=== PATIENT | female | born 1995 | race Two or more races ===

== ENCOUNTER → 2021-06-19 11:29 | Outpatient (BNVA) | payer BC, MEDICAID, SELFPAY | PROVIDERS: Visit Provider Emergency Medicine | DX: Z34.90 Encounter for supervision of normal pregnancy, unspecified, unspecified trimester (principal) | CPT/HCPCS: 81025 ==

== ENCOUNTER 2021-11-23 08:27 | Outpatient (CLI) | payer BC, MEDICAID, SELFPAY ==
--- NOTE | 2021-11-23 08:39 | US_ITS ---
WS: [id number] OB ultrasound, 11/23/2021 Clinical Data: SUPERVISION OF NORMAL Comparison: None. Findings: There is a single intrauterine in the breech presentation. The cervix measures 6.23 cm and is closed. The placenta is posterior and grade 0. There is a normal amount of amnionic fluid. The fet al heart rate is 133 beats per minute. Measurements of growth and development: BPD: 7.2 cm HC: 28.2 cm AC: 24.2 cm FL: 5.6 cm The estimated weight is 1337 or approximately 2 pounds 15 ounces. The estimated gestational age is 29w3d with an LAMONTE of approximately 02/05/2022. anatomy show a normal stomach, kidneys, bladder, cord insertion, bilateral upper and lower extr emities, three-vessel cord and its insertion, entire spine, four-chamber heart, RVOT and LVOT, latera l cerebral ventricles, cerebellum and cisterna magna. Female gender is noted. US/US OB >= 14 weeks fetus [id number] Impression: 1. Single intrauterine in breech presentation. 2. Estimated gestational age 29w3d with an LAMONTE of 02/05/2022. 3. heart rate 133 beats per minute.
== END 2021-11-23 08:28 | disposition home or self-care (01) ==
LOC: RAD 08:28
PROVIDERS: PCP Nurse Practitioner Family; Visit Provider Nurse Practitioner Family
DX: Z34.82 Encounter for supervision of other normal pregnancy, second trimester (principal); Z36.3 Encounter for antenatal screening for malformations; Z3A.29 29 weeks gestation of pregnancy
CPT/HCPCS: 76805

== ENCOUNTER → 2023-06-20 10:12 | Outpatient (BNVA) | payer BC, SELFPAY | PROVIDERS: PCP Nurse Practitioner Family; Visit Provider Psychiatry & Neurology Psychiatry | DX: Z79.899 Other long term (current) drug therapy (principal); F30.2 Manic episode, severe with psychotic symptoms | CPT/HCPCS: 80053; 80061; 83036; 84443; 85025 ==

== ENCOUNTER 2024-02-20 08:57 | Inpatient (IN) | payer BC, SELFPAY ==
[2024-02-20 09:06] VITALS: BP 130/85; PULSE 82; RESP 18; TEMP 36.8; O2SAT 99; BMI 23.5
--- NOTE | 2024-02-20 09:16 | W.ED.PSYCHS ---
Documented by User: KAT Arango 02/20/24 11:17 HPI - Psych General: Chief Complaint: Psychiatric Symptoms Stated Complaint: si Time Seen by Provider: 02/20/24 08:59 Source: patient Mode of arrival: EMS Limitations: no limitations History of Present Illness: Patient is a 28-year-old female presents to ED today via EMS for suicidal ideations. Patient states she cut her wrists this morning on a suicide attempt stating I want to . Patient upon arrival is very quiet, tearful, with a flat affect. She is not very forthcoming with information. She does states she has a longstanding history of depression. She states she does not take any medications for this because they do not work . MD complaint: suicidal ideation and feels depressed Onset (ago): year(s) Duration: constant History of same: Yes Relieving factors: none Exacerbating factors: none Associated psychiatric symptoms: depression and suicidal ideation Associated symptoms: Reports depression and suicidal ideation; Deny auditory hallucinations, visual hallucinations or homicidal ideation Treatments prior to arrival: none If self harm: admits thoughts of self harm and has acted on plan (cut wrist this morning) Review of Systems Const: Denies: fever(s) or chills Card: Denies: chest pain, palpitations, lightheadedness or syncope Resp: Denies: dyspnea GI: Denies: abdominal pain, nausea, vomiting or diarrhea Skin/Breast: Denies: rash Neuro: Denies: headache(s), numbness in extremities, weakness in extremities or sensory changes Psych: Reports: depression and suicidal ideation; Denies: paranoia, visual hallucinations, auditory hallucinations or homicidal ideation FOR[facility]LY [facility], [facility] ED PFSH: Medical History Psychiatric care Social History Smoking and tobacco/nicotine status: current some day tobacco/nicotine user Physical Exam Const: COMMON NORMALS: no acute distress, patient oriented x3, alert and well nourished GENERAL APPEARANCE: cooperative and well kempt Resp: COMMON NORMALS: normal respiratory effort and clear to auscultation bilaterally AUSCULTATION: clear to auscultation bilaterally Cardio: COMMON NORMALS: regular rate and regular rhythm RATE: regular rate RHYTHM: regular rhythm Extremity: COMMON NORMALS: normal to inspection, full ROM and capillary refill normal NARRATIVE EXTREMITY EXAM: superficial lacerations volar bilateral wrists; bleeding controlled; do not require repair at this time GENERAL: Yes normal exam except as noted Neuro: COMMON NORMALS: patient oriented x3, moves all extremities, no focal motor deficits and no sensory deficits noted SENSORIUM/ORIENTATION: Yes alert Psych: COMMON NORMALS: mental status grossly normal, Normal thought process present, cooperative, normal affect, speech normal and activity/motor behavior normal APPEARANCE: Yes well kempt ACTIVITY/MOTOR BEHAVIOR: Yes appropriate eye contact and No psychomotor agitation SPEECH: Yes normal speech THOUGHT PROCESS: Normal thought process present MEMORY/COGNITION: Yes cognition grossly intact INSIGHT: Good insight present (Psych) JUDGEMENT: Good judgement present (Psych) Skin: NARRATIVE SKIN EXAM: superficial lacerations volar wrists Course Consultations: Consultation #1: Dr. Briones-accepts to NPU Vital Signs: Vital signs: Vital Signs Temperature 98.5 F 02/20/24 11:23 Pulse Rate 64 02/20/24 11:23 Respiratory Rate 17 02/20/24 11:23 Blood Pressure 122/85 02/20/24 11:23 Pulse Oximetry 100 02/20/24 11:23 Oxygen Delivery Me thod Room Air 02/20/24 12:46 MDM - Psych Medical Decision Making Patient will be placed on a 96-hour hold for suicidal ideation/suicide attempt/self harming behavior. She will be admitted to NPU. Medical Records I reviewed the patient's medical records. Lab Data 02/20/24 10:09 02/20/24 10:09 Laboratory Results WBC 8.16 10^3/uL (3.29-11.43) 02/20/24 10:09 RBC 4.09 10^6/uL (3.85-5.65) 02/20/24 10:09 Hgb 12.20 g/dL (11.27-16.99) 02/20/24 10:09 Hct 37.8 % (36-47) 02/20/24 10:09 MCV 92.4 fl (85-98) 02/20/24 10:09 MCH 29.8 pg (27-33) 02/20/24 10:09 MCHC 32.3 g/dL (30-55) 02/20/24 10:09 RDW 13.0 % (12.1-15.1) 02/20/24 10:09 Plt Count 274 10^3/cmm (157-399) 02/20/24 10:09 MPV 10.1 fL (7.4-10.4) 02/20/24 10:09 Neut % (Auto) 79.2 % 02/20/24 10:09 Lymph % (Auto) 15.2 % 02/20/24 10:09 [place] % (Auto) 4.3 % 02/20/24 10:09 Eos % (Auto) 1.1 % 02/20/24 10:09 Baso % (Auto) 0.1 % 02/20/24 10:09 Neut # (Auto) 6.46 10^3/uL (1.8-7.7) 02/20/24 10:09 Lymph # (Auto) 1.2 10^3/uL (0.8-4.8) 02/20/24 10:09 [place] # (Auto) 0.4 10^3/uL (0.2-0.9) 02/20/24 10:09 Eos # (Auto) 0.1 10^3/uL (0.0-0.8) 02/20/24 10:09 Baso # (Auto) 0.0 10^3/uL (0.0-0.1) 02/20/24 10:09 Nucleated RBC % (auto) 0 % 02/20/24 10:09 Nucleated RBCs # 0.0 /100WBC 02/20/24 10:09 Sodium 141 mmol/L (136-145) 02/20/24 10:09 Potassium 3.6 mmol/L (3.5-5.1) 02/20/24 10:09 Chloride 106 mmol/L (98-107) 02/20/24 10:09 Carbon Dioxide 24 mmol/L (22-29) 02/20/24 10:09 Anion Gap 14.6 (5-19) 02/20/24 10:09 BUN 8 mg/dL (6-20) 02/20/24 10:09 Creatinine 0.7 mg/dL (0.5-0.9) 02/20/24 10:09 GFR Calculation 118.9 mL/min (90-130) 02/20/24 10:09 Glucose 85 mg/dL (65-115) 02/20/24 10:09 Calculated Osmolality 290 mOsm/kg (285-295) 02/20/24 10:09 Calcium 8.7 mg/dL (8.5-10.5) 02/20/24 10:09 Total Bilirubin 0.5 mg/dL (0.15-1.2) 02/20/24 10:09 AST 13 U/L (0-32) 02/20/24 10:09 ALT < 5 U/L (0-33) 02/20/24 10:09 Alkaline Phosphatase 50 U/L (35-105) 02/20/24 10:09 Total Protein 6.8 g/dL (6.6-8.7) 02/20/24 10:09 Albumin 3.9 g/dL (3.5-5.2) 02/20/24 10:09 Globulin 2.9 g/dL (1.3-4.6) 02/20/24 10:09 HCG, Qual Negative (Negative) 02/20/24 10:09 Salicylates < 0.3 mg/dL (3-10) L 02/20/24 10:09 Urine Opiates Screen Negative ng/mL (Negative) 02/20/24 09:22 Acetaminophen < 5.0 ug/mL (10-30) L 02/20/24 10:09 Ur Barbiturates Screen Negative ng/mL (Negative) 02/20/24 09:22 Ur Phencyclidine Scrn Negative ng/mL (Negative) 02/20/24 09:22 Ur Amphetamines Screen Negative ng/mL (Negative) 02/20/24 09:22 U Benzodiazepines Scrn Negative ng/mL (Negative) 02/20/24 09:22 Urine Cocaine Screen Negative ng/mL (Negative) 02/20/24 09:22 U Marijuana (THC) Screen Negative ng/mL (Negative) 02/20/24 09:22 Ethyl Alcohol < 10 mg/dL (0-10) 02/20/24 10:09 No radiology studies performed this visit Discharge Plan Discharge Patient Disposition: Admitted As Inpatient Admit Provider: Oscar Briones Clinical Impression: Suicidal ideation, Self-harming behavior, Involuntary commitment Condition: Stable Coding Level of Care Code ED Recoater for Chg Fwd Documented by User: Ranjit Lomeli DO 02/20/24 16:46 HPI - Psych General: Chief Complaint: Psychiatric Symptoms Stated Complaint: si Time Seen by Provider: 02/20/24 08:59 PFSH ED PFSH: Medical History Psychiatric care Social History Smoking and tobacco/nicotine status: current some day tobacco/nicotine user Course Vital Signs: Vital signs: Vital Signs Temperature 98.5 F 02/20/24 11:23 Pulse Rate 64 02/20/24 11:23 Respiratory Rate 17 02/20/24 11:23 Blood Pressure 122/85 02/20/24 11:23 Pulse Oximetry 100 02/20/24 11:23 Oxygen Delivery Me thod Room Air 02/20/24 12:46 MDM - Psych Medical Decision Making Patient will be placed on a 96-hour hold for suicidal ideation/suicide attempt/self harming behavior. She will be admitted to NPU. Chart reviewed and patient discussed with midlevel. Agree with assessment and plan. Lab Data 02/20/24 10:09 02/20/24 10:09 Laboratory Results WBC 8.16 10^3/uL (3.29-11.43) 02/20/24 10:09 RBC 4.09 10^6/uL (3.85-5.65) 02/20/24 10:09 Hgb 12.20 g/dL (11.27-16.99) 02/20/24 10:09 Hct 37.8 % (36-47) 02/20/24 10:09 MCV 92.4 fl (85-98) 02/20/24 10:09 MCH 29.8 pg (27-33) 02/20/24 10:09 MCHC 32.3 g/dL (30-55) 02/20/24 10:09 RDW 13.0 % (12.1-15.1) 02/20/24 10:09 Plt Count 274 10^3/cmm (157-399) 02/20/24 10:09 MPV 10.1 fL (7.4-10.4) 02/20/24 10:09 Neut % (Auto) 79.2 % 02/20/24 10:09 Lymph % (Auto) 15.2 % 02/20/24 10:09 [place] % (Auto) 4.3 % 02/20/24 10:09 Eos % (Auto) 1.1 % 02/20/24 10:09 Baso % (Auto) 0.1 % 02/20/24 10:09 Neut # (Auto) 6.46 10^3/uL (1.8-7.7) 02/20/24 10:09 Lymph # (Auto) 1.2 10^3/uL (0.8-4.8) 02/20/24 10:09 [place] # (Auto) 0.4 10^3/uL (0.2-0.9) 02/20/24 10:09 Eos # (Auto) 0.1 10^3/uL (0.0-0.8) 02/20/24 10:09 Baso # (Auto) 0.0 10^3/uL (0.0-0.1) 02/20/24 10:09 Nucleated RBC % (auto) 0 % 02/20/24 10:09 Nucleated RBCs # 0.0 /100WBC 02/20/24 10:09 Sodium 141 mmol/L (136-145) 02/20/24 10:09 Potassium 3.6 mmol/L (3.5-5.1) 02/20/24 10:09 Chloride 106 mmol/L (98-107) 02/20/24 10:09 Carbon Dioxide 24 mmol/L (22-29) 02/20/24 10:09 Anion Gap 14.6 (5-19) 02/20/24 10:09 BUN 8 mg/dL (6-20) 02/20/24 10:09 Creatinine 0.7 mg/dL (0.5-0.9) 02/20/24 10:09 GFR Calculation 118.9 mL/min (90-130) 02/20/24 10:09 Glucose 85 mg/dL (65-115) 02/20/24 10:09 Calculated Osmolality 290 mOsm/kg (285-295) 02/20/24 10:09 Calcium 8.7 mg/dL (8.5-10.5) 02/20/24 10:09 Total Bilirubin 0.5 mg/dL (0.15-1.2) 02/20/24 10:09 AST 13 U/L (0-32) 02/20/24 10:09 ALT < 5 U/L (0-33) 02/20/24 10:09 Alkaline Phosphatase 50 U/L (35-105) 02/20/24 10:09 Total Protein 6.8 g/dL (6.6-8.7) 02/20/24 10:09 Albumin 3.9 g/dL (3.5-5.2) 02/20/24 10:09 Globulin 2.9 g/dL (1.3-4.6) 02/20/24 10:09 HCG, Qual Negative (Negative) 02/20/24 10:09 Salicylates < 0.3 mg/dL (3-10) L 02/20/24 10:09 Urine Opiates Screen Negative ng/mL (Negative) 02/20/24 09:22 Acetaminophen < 5.0 ug/mL (10-30) L 02/20/24 10:09 Ur Barbiturates Screen Negative ng/mL (Negative) 02/20/24 09:22 Ur Phencyclidine Scrn Negative ng/mL (Negative) 02/20/24 09:22 Ur Amphetamines Screen Negative ng/mL (Negative) 02/20/24 09:22 U Benzodiazepines Scrn Negative ng/mL (Negative) 02/20/24 09:22 Urine Cocaine Screen Negative ng/mL (Negative) 02/20/24 09:22 U Marijuana (THC) Screen Negative ng/mL (Negative) 02/20/24 09:22 Ethyl Alcohol < 10 mg/dL (0-10) 02/20/24 10:09 Discharge Plan Discharge Patient Disposition: Admitted As Inpatient Admit Provider: Oscar Briones Clinical Impression: Suicidal ideation, Self-harming behavior, Involuntary commitment Condition: Stable Coding Level of Care Code ED Recoater for Jann Ruiz
--- NOTE | 2024-02-20 10:24 | PC.NURSE ---
96 hr rights reviewed with patient @1010 with assistance of [facility] chief quality officer Jessee. Patient shook her head when asked if she understood the guidelines of the 96 hr hold. No verbalized needs or concerns at this time. Patient denied any other needs at this time. Patient copy of rights were left with patient.
[2024-02-20 10:41] LABS: Basophils % 0.1 %; Eosinophils # 0.1 10^3/uL (0.0-0.8); Eosinophils % 1.1 %; Hematocrit 37.8 % (36-47); Lymphocytes # 1.2 10^3/uL (0.8-4.8); Lymphocytes % 15.2 %; Mean Corpuscular HGB Conc 32.3 g/dL (30-55); Mean Corpuscular Hemoglobin 29.8 pg (27-33); Mean Corpuscular Volume 92.4 fl (85-98); Mean Platelet Volume 10.1 fL (7.4-10.4); Monocytes # 0.4 10^3/uL (0.2-0.9); Monocytes % 4.3 %; Neutrophils # 6.46 10^3/uL (1.8-7.7); Neutrophils % 79.2 %; Nucleated Red Blood Cells % 0 %; Platelet Count 274 10^3/cmm (157-399); Red Blood Count 4.09 10^6/uL (3.85-5.65); White Blood Count 8.16 10^3/uL (3.29-11.43)
[2024-02-20 10:44] LABS: HCG, Serum Qual Negative (Negative)
[2024-02-20 10:49] LABS: Alanine Aminotransferase < 5 U/L (0-33); Albumin Level 3.9 g/dL (3.5-5.2); Alkaline Phosphatase 50 U/L (35-105); Anion Gap 14.6 (5-19); Aspartate Amino Transferase 13 U/L (0-32); Blood Urea Nitrogen 8 mg/dL (6-20); Calcium 8.7 mg/dL (8.5-10.5); Carbon Dioxide 24 mmol/L (22-29); Chloride 106 mmol/L (98-107); Creatinine Clr Calc Pharmacy 119.0559; Globulin 2.9 g/dL (1.3-4.6); Glomerular Filtration Rate 118.9 mL/min (90-130); Glucose 85 mg/dL (65-115); Osmolality Calculated 290 mOsm/kg (285-295); Potassium 3.6 mmol/L (3.5-5.1); Sodium 141 mmol/L (136-145); Total Bilirubin 0.5 mg/dL (0.15-1.2); Total Protein 6.8 g/dL (6.6-8.7)
[2024-02-20 10:53] LABS: Acetaminophen < 5.0 ug/mL (10-30); Alcohol Level < 10 mg/dL (0-10); Salicylate < 0.3 mg/dL (3-10)
[2024-02-20 11:23] VITALS: BP 122/85; PULSE 64; RESP 17; TEMP 36.9; O2SAT 100
[2024-02-20 11:25] LABS: Amphetamines Screen Urine Negative (Negative); Barbiturates Screen Urine Negative (Negative); Benzodiazepines Screen Urine Negative (Negative); Cocaine Screen Urine Negative (Negative); Opiate Screen Urine Negative (Negative); PCP Screen Urine Negative (Negative); THC Screen Urine Negative (Negative)
[2024-02-20] MEDS: acetaminophen 325 mg Tablet 650 MG PO ×2 (11:58→17:42)
--- NOTE | 2024-02-20 13:11 | PC.ADMIT ---
[email or web address] [facility] Admission Note: The patient,Leilani Muñoz,28 y/o, was given written information regarding hospital policies, unit procedures and contact persons. Patient's smoking status: current some day smoker. Vital Signs - 8 hr 02/20/24 09:06 02/20/24 11:23 02/20/24 12:46 Temperature 98.2 F 98.5 F Pulse Rate 82 64 Respiratory Rate 18 17 Blood Pressure 130/85 122/85 Pulse Oximetry 99 100 Oxygen Delivery Method Room Air Room Air ADMITTED FROM [facility] ER AT 1104 VIA WHEELCHAIR, SECURITY AND ER STAFF. PT IS OBSERVED TO HAVE A VERY FLAT AFFECT UPON ADMISSION. ARRIVES ON A 96 HOUR HOLD THAT ENDS ON 02/24/24 AT 0900 AM. PT STATES SHE IS HERE DUE TO I KEEP HAVING WORSENING SUICIDAL THOUGHTS THAT HAVE GOTTEN WORSE SINCE THE FIRST OF THE YEAR. PT REPORTS A LONG PSYCHIATRIC HISTORY THAT STARTED WHEN SHE WAS 4 YEARS OLD. PT ALSO REPORTS SHE WAS DIAGNOSISED WITH LEAD PSYCHOSIS WHEN I WAS [age] FROM EATING PAINT CHIPS. PT STATES SHE HAS TAKEN EVERY PSYCH MED AVAILABLE AND NONE HAVE WORKED ON ME. SKIN ASSESSMENT COMPLETED WITH HEALTH SCIENCES MANAGER IN ROOM. SKIN ASSESSMENT REVEALS: SELF INFLICTED CUTS TO BILATERAL WRISTS, LEFT IS WORSE THAN THE RIGHT, RN CLEANED AND APPLIED TELPHA TO EACH WRIST TO KEEP ARM BAND FROM IRRITATING THE CUTS. 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 UDS IS NEGATIVE FOR SUBSTANCES AND PT DENIES USING ALCOHOL OR DRUGS. PT WAS ORIENTATED TO UNIT. ALL QUESTIONS ANSWERED AND SUPPORT VOICED. PT REPORTS SHE ONLY TAKES SUPPLEMENTS AND NO OTHER MEDICATIONS.
[2024-02-20 14:00] VITALS: BP 124/84; PULSE 88; RESP 16; TEMP 36.6; O2SAT 100
--- NOTE | 2024-02-20 17:58 | PC.NURSE ---
CONTINUES TO COMPLAIN OF HEADACHE. TYLENOL 650 MG GIVEN TIMES TWO THIS SHIFT WITH MINIMAL RESULTS. PT WAS ABLE TO LAY DOWN AND REST BRIEFLY. CONTINUES TO DISPLAY FLAT AFFECT AND DEPRESSED MOOD. SUPPORT VOICED.
[2024-02-20] MEDS: ibuprofen 600 mg Tablet PO (20:10)
[2024-02-20] MEDS: lamoTRIgine 25 mg Tablet 50 MG PO (20:11)
[2024-02-20 21:10] VITALS: BP 127/80; PULSE 74; RESP 17; O2SAT 100
[2024-02-21 06:00] VITALS: BP 123/81; PULSE 73; RESP 16; O2SAT 100
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
[2024-02-21] MEDS: lamoTRIgine 25 mg Tablet 50 MG PO (09:16)
[2024-02-21 14:00] VITALS: BP 130/82; PULSE 79; RESP 16; TEMP 36.8; O2SAT 98
[2024-02-21] MEDS: quetiapine 100 mg Tablet PO (21:46)
[2024-02-21 22:00] VITALS: BP 121/86; PULSE 74; RESP 16; TEMP 36.7; O2SAT 99
[2024-02-22 06:00] VITALS: BP 124/72; PULSE 59; RESP 15; O2SAT 99
[2024-02-22] MEDS: lamoTRIgine 25 mg Tablet 50 MG PO (08:54)
[2024-02-22 14:00] VITALS: BP 119/83; PULSE 95; RESP 16; TEMP 36.6; O2SAT 98
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
[2024-02-22] MEDS: quetiapine 100 mg Tablet PO (21:42)
[2024-02-22 22:00] VITALS: BP 121/71; PULSE 74; RESP 16; TEMP 36.7; O2SAT 98
[2024-02-22] MEDS: neomycin-poly-bacitracin oint 28 gm 1 APPLIC TOPICAL (23:05)
[2024-02-23 06:00] VITALS: BP 123/79; PULSE 60; RESP 15; O2SAT 99
[2024-02-23] MEDS: lamoTRIgine 25 mg Tablet 50 MG PO (08:01)
--- NOTE | 2024-02-23 09:33 | PC.NURSE ---
Older brother, Ryan, called and stated that in the last decade their mother had threatened suicide in a similar way that the patient had. He said he believes this may be a learned coping mechanism in response to stress. Patient says he did not grow up as close to his mother as the patient did, but that he vividly remembers his mother making similar statements and that the patient was probably too little to remember being exposed to these things. Brother states he is supportive of patient and understands why she feels the way she does.
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
[2024-02-23 14:00] VITALS: BP 140/80; PULSE 107; RESP 20; TEMP 36.3; O2SAT 96
[2024-02-23] MEDS: bisacodyl 5 mg Tablet PO (16:02)
[2024-02-23] MEDS: quetiapine 100 mg Tablet PO (20:29)
[2024-02-23 21:33] VITALS: BP 116/87; PULSE 90; RESP 16; TEMP 36.5; O2SAT 99
[2024-02-24 06:00] VITALS: BP 116/76; PULSE 60; RESP 15; O2SAT 98
[2024-02-24] MEDS: lamoTRIgine 25 mg Tablet 50 MG PO (08:34)
[2024-02-24] MEDS: acetaminophen 325 mg Tablet 650 MG PO (08:51)
--- NOTE | 2024-02-24 09:53 | PC.NURSE ---
IN ROOM SITTING ON BED. PT IS OBSERVED TO BE IN BETTER SPIRITS THIS AM. RATES PAIN 5/10 IN BACK, HYDROCODONE 5/325MG GIVEN ORDERED FOR PAIN. RATES ANXIETY 6/10, VISTARIL 50 MG WAS GIVEN ORDERED FOR ANXIETY. RATES DEPRESSION 3/10. DENIES SI/HI AND AVH AT THIS TIME. ALL QUESTIONS ANSWERED AND SUPPORT WAS VOICED.
--- NOTE | 2024-02-24 09:55 | PC.NURSE ---
PT DENIES SI/HI AND AVH AT THIS TIME. RATES ANXIETY 4/10 AND DEPRESSION 2/10. PT CONTINUES TO BE NOTED TO HAVE A FLAT AFFECT AND WITHDRAWS TO ROOM. ALL QUESTIONS ANSWERED AND SUPPORT WAS VOICED. RATES PAIN 5/10 IN HEAD, TYLENOL 650 MG ORDERED FOR PAIN.
[2024-02-24 13:32] VITALS: BP 138/83; PULSE 75; RESP 16; TEMP 36.9; O2SAT 100
[2024-02-24 14:11] VITALS: BP 138/83; PULSE 75; RESP 16; TEMP 36.9; O2SAT 100
--- NOTE | 2024-02-24 15:11 | W.PM.NPUDCS ---
Diagnoses at Discharge Discharge Diagnosis (1) Bipolar affective, depress, unspec: Status: Acute (2) Suicidal ideation: Status: Acute (3) Involuntary commitment: Status: Acute Reason for Visit Reason for Visit: si Involuntary Hold Information 96 Hour Hold: 96 Hour Involuntary Admission: Yes 96 Hour Hold Ending Date: 02/24/24 96 Hour Hold Ending Time: 09:00 Mental Status Exam MSE Comments: This is a well-nourished well-developed mixed female in hospital scrubs with adequate grooming and eye contact. No abnormal movements except for mild psychomotor retardation. Cooperative with exam in no acute distress. Speech was normal rate and volume. Mood described as better, affect slightly subdued. Thought process organized. Thought content: Patient denied suicidal or homicidal ideation, there were no delusions reported or noted, she denied auditory or visual hallucinations. Attention and concentration appeared intact and memory was reliable but none were formally tested. She is alert and oriented x 3. Insight and judgment are improving and impulse control is limited. . Discharge Data Studies Completed and Pending: Laboratory Results WBC 8.16 10^3/uL (3.2 9-11.43) 02/20/24 10:09 RBC 4.09 10^6/uL (3.8 5-5.65) 02/20/24 10:09 Hgb 12.20 g/dL (11.27 -16.99) 02/20/24 10:09 Hct 37.8 % (36-47) 02/20/24 10:09 MCV 92.4 fl (85-98) 02/20/24 10:09 MCH 29.8 pg (27-33) 02/20/24 10:09 MCHC 32.3 g/dL (30-55) 02/20/24 10:09 RDW 13.0 % (12.1-15.1 ) 02/20/24 10:09 Plt Count 274 10^3/cmm (157 -399) 02/20/24 10:09 MPV 10.1 fL (7.4-10.4 ) 02/20/24 10:09 Neut % (Auto) 79.2 % 02/20/24 10:09 Lymph % (Auto) 15.2 % 02/20/24 10:09 [place] % (Auto) 4.3 % 02/20/24 10:09 Eos % (Auto) 1.1 % 02/20/24 10:09 Baso % (Auto) 0.1 % 02/20/24 10:09 Neut # (Auto) 6.46 10^3/uL (1.8 -7.7) 02/20/24 10:09 Lymph # (Auto) 1.2 10^3/uL (0.8- 4.8) 02/20/24 10:09 [place] # (Auto) 0.4 10^3/uL (0.2- 0.9) 02/20/24 10:09 Eos # (Auto) 0.1 10^3/uL (0.0- 0.8) 02/20/24 10:09 Baso # (Auto) 0.0 10^3/uL (0.0- 0.1) 02/20/24 10:09 Nucleated RBC % (a uto) 0 % 02/20/24 10:09 Nucleated RBCs # 0.0 /100WBC 02/20/24 10:09 Sodium 141 mmol/L (136-1 45) 02/20/24 10:09 Potassium 3.6 mmol/L (3.5-5 .1) 02/20/24 10:09 Chloride 106 mmol/L (98-10 7) 02/20/24 10:09 Carbon Dioxide 24 mmol/L (22-29) 02/20/24 10:09 Anion Gap 14.6 (5-19) 02/20/24 10:09 BUN 8 mg/dL (6-20) 02/20/24 10:09 Creatinine 0.7 mg/dL (0.5-0. 9) 02/20/24 10:09 GFR Calculation 118.9 mL/min (90- 130) 02/20/24 10:09 Glucose 85 mg/dL (65-115) 02/20/24 10:09 Calculated Osmolal ity 290 mOsm/kg (285- 295) 02/20/24 10:09 Calcium 8.7 mg/dL (8.5-10 .5) 02/20/24 10:09 Total Bilirubin 0.5 mg/dL (0.15-1 .2) 02/20/24 10:09 AST 13 U/L (0-32) 02/20/24 10:09 ALT < 5 U/L (0-33) 02/20/24 10:09 Alkaline Phosphata se 50 U/L (35-105) 02/20/24 10:09 Total Protein 6.8 g/dL (6.6-8.7 ) 02/20/24 10:09 Albumin 3.9 g/dL (3.5-5.2 ) 02/20/24 10:09 Globulin 2.9 g/dL (1.3-4.6 ) 02/20/24 10:09 HCG, Qual Negative (Negati ve) 02/20/24 10:09 Salicylates < 0.3 mg/dL (3-10 ) L 02/20/24 10:09 Urine Opiates Scre en Negative ng/mL (N egative) 02/20/24 09:22 Acetaminophen < 5.0 ug/mL (10-3 0) L 02/20/24 10:09 Ur Barbiturates Sc reen Negative ng/mL (N egative) 02/20/24 09:22 Ur Phencyclidine S crn Negative ng/mL (N egative) 02/20/24 09:22 Ur Amphetamines Sc reen Negative ng/mL (N egative) 02/20/24 09:22 U Benzodiazepines Scrn Negative ng/mL (N egative) 02/20/24 09:22 Urine Cocaine Scre en Negative ng/mL (N egative) 02/20/24 09:22 U Marijuana (THC) Screen Negative ng/mL (N egative) 02/20/24 09:22 Ethyl Alcohol < 10 mg/dL (0-10) 02/20/24 10:09 Vitals: Last Vital Signs Temp 98.4 F 02/24/24 14:11 Pulse 75 02/24/24 14:11 Resp 16 02/24/24 14:11 BP 138/83 02/24/24 14:11 Pulse Ox 100 02/24/24 14:11 O2 Del Method Room Air 02/21/24 06:00 Discharge Plan Discharge Patient Disposition: Home Condition: Stable Prescriptions: New lamotrigine 100 mg tablet 100 mg PO DAILY 30 Days Qty: 30 1RF Rx Instructions: Take one half tab for 1 week and then 1 tab daily quetiapine 100 mg Tablet 100 mg PO BEDTIME 30 Days Qty: 30 1RF Continued FeroSul 325 mg (65 mg iron) tablet 325 mg PO DAILY Tri-Estarylla 0.18/0.215/0.25 mg-35 mcg (28) tablet 1 tab PO DAILY ergocalciferol (vitamin D2) 1,250 mcg (50,000 unit) capsule 1,250 mcg PO Q7D fluticasone propionate 50 mcg/actuation spray,suspension 2 spray INTRANASAL DAILY Discharge Orders: Discharge Order (Routine); Ordered 02/24/24 Ordered By: Joce Ellis Referrals: [facility] [Other] (Amy Cevallos) [facility] [Other] - 02/27/24 1:30 pm (Initial assessment for services. Arrive early) Marlyn Alcaraz, INFORMATION SYSTEMS ADMINISTRATOR [Primary Care Provider] - Discharge Diet: Regular Discharge Activity: Resume usual activity Patient Instructions: Lamotrigine (By mouth) (Lamictal, Lamictal CD, Lamictal ODT,..., Quetiapine (By mouth) (Seroquel, Seroquel XR, Seroquel XR 14-Day..., Bipolar Disorder (DC), Help Prevent Suicide (DC), Suicide Prevention (DC), Opioid Safety Coding Level of Care Code Acute Code for g Fwd Diagnoses Bipolar affective, depress, unspec F31.30 Suicidal ideation R45.851 Involuntary commitment Z04.6
== END 2024-02-24 16:30 | disposition home or self-care (01) | DRG 885 ==
LOC: ER 09:29 → NP 10:55
PROVIDERS: Admitting Provider Psychiatry & Neurology Psychiatry; Emergency Provider Physician Assistant; PCP Nurse Practitioner Family; Visit Provider Psychiatry & Neurology Psychiatry
DX: F31.9 Bipolar disorder, unspecified (principal); R45.851 Suicidal ideations; R45.88 Nonsuicidal self-harm; S60.919A Unspecified superficial injury of unspecified wrist, initial encounter; X78.9XXA Intentional self-harm by unspecified sharp object, initial encounter
CPT/HCPCS: 36415; 80053; 80306; 80307; 84703; 85025; 97150; 97165; 99285

== ENCOUNTER → 2024-04-23 14:53 | Outpatient (BNVA) | payer BC, SELFPAY | PROVIDERS: PCP Nurse Practitioner Family; Visit Provider Nurse Practitioner | DX: R10.30 Lower abdominal pain, unspecified (principal) | CPT/HCPCS: 81000; 87086 ==

== ENCOUNTER 2024-05-07 15:42 | Outpatient (CLI) | payer BC, MEDICAID, SELFPAY ==
--- NOTE | 2024-05-07 15:45 | USR_ITS ---
PROCEDURE INFORMATION: Exam: US Pelvis, Transvaginal, Non-Obstetric Exam date and time: 05/07/2024 3:47 PM Age: 29 years old Clinical indication: Abdominal pain; Lower abdomen; Additional info: R10.30 - lower abdominal pain, unspecified TECHNIQUE: Imaging protocol: Real-time transvaginal pelvic (non-obstetric) ultrasound with image documentation. Transvaginal imaging was used for better evaluation of the endometrium, adnexa, and/or cervix. COMPARISON: US OB >= 14 weeks fetus [id number] 11/23/2021 8:48 AM FINDINGS: Uterus: Uterus measures 8.6 x 4.4 x 5.5 cm and appears unremarkable in echotexture and contour. Endometrium measures 2 mm. Right ovary/adnexa: Right ovary measures 2.5 x 1.9 x 1.7 cm with a volume of 4.3 mL. A small follicular cyst of 1.1 x 1 x 0.8 cm noted. Right ovarian flow is seen. PS V 12 cm/s and RI 0.51. Left ovary/adnexa: Left ovary measures 2.4 x 1.9 x 2.2 cm with a volume of 5.4 mL. A small follicular cyst of 1.2 x 1.2 x 1.2 cm noted. Left ovarian flow is seen with PSV 10.1 cm/s and RI 0.60. Urinary bladder: Urinary bladder is limited. Intraperitoneal space: No free fluid is seen within the cul-de-sac. US/US transvaginal [id number] IMPRESSION: 1. Small follicular cyst of 1.1 cm right ovary and 1.2 cm left ovary. Bilateral ovarian flow. 2. Uterus and endometrium appear unremarkable. No free fluid is seen.
== END 2024-05-07 15:43 | disposition home or self-care (01) ==
LOC: RAD 15:42
PROVIDERS: PCP Nurse Practitioner Family; Visit Provider Nurse Practitioner
DX: R10.30 Lower abdominal pain, unspecified (principal); N83.02 Follicular cyst of left ovary; N83.01 Follicular cyst of right ovary
CPT/HCPCS: 76830; 81000; 87086

== ENCOUNTER → 2024-06-25 07:22 | Outpatient (BNVA) | payer BC, MEDICAID, SELFPAY | PROVIDERS: PCP Nurse Practitioner; Visit Provider Podiatrist Foot & Ankle Surgery | DX: M79.671 Pain in right foot (principal); Q66.51 Congenital pes planus, right foot | CPT/HCPCS: 73630 ==